=== PATIENT | female | born 1955 | race Caucasian/White ===

== ENCOUNTER 2019-03-27 20:08 | Emergency (ER) | payer BC ==
[2019-03-27] MEDS ORDERED: RINGERS SOLUTION,LACTATED 1,000 ML IV ONE (20:32)
[2019-03-27] MEDS ORDERED: ONDANSETRON HCL INJ/PF 4 MG/2 ML SDV IV ONE (20:32)
[2019-03-27] MEDS ORDERED: ONDANSETRON 4 MG TAB.RAPDIS PO ONE (21:23)
--- NOTE | 2019-03-27 21:28 | ER Document Report ---
ED General - General Chief Complaint: High Blood Sugar Stated Complaint: NAUSEA/VOMITING Time Seen by Provider: 03/27/19 20:30 Primary Care Provider: TWYLA UGALDE [NO LOCAL MD] - Follow up as needed Notes: Patient is a 63-year-old female with past medical history of diabetes, hypertension, presents complaining of approximately 12 hours of persistent vomiting. States the vomiting started earlier this morning and has been persistent since that time. This is a nonbilious, non-feculent vomiting. No hematochezia, melena or hematemesis. Symptoms are regarded as being severe, abrupt in onset and ongoing since that time. Nothing has been noted to improve or worsen the symptoms since onset. Last bowel movement was approximately 24 hours ago. Denies any associated abdominal pain. Has a surgical history of a cholecystectomy. No chest pain, fever or shortness of breath. Has not seen her primary care physician regarding today's concerns. TRAVEL OUTSIDE OF THE [place] IN LAST 30 DAYS: No Past Medical History - General Information source: Patient - Social History Smoking Status: Never Smoker Frequency of alcohol use: None Drug Abuse: None Lives with: Spouse/Significant other Family History: Reviewed & Not Pertinent Review of Systems - Review of Systems Notes: Constitutional: Negative for fever. HENT: Negative for sore throat. Eyes: Negative for visual changes. Cardiovascular: Negative for chest pain. Respiratory: Negative for shortness of breath. Gastrointestinal: Negative for abdominal pain, positive for nausea and vomiting Genitourinary: Negative for dysuria. Musculoskeletal: Negative for back pain. Skin: Negative for rash. Neurological: Negative for headaches, weakness or numbness. 10 point ROS negative except as marked above and in HPI. Physical Exam - Vital signs Vitals: Temp Pulse Resp BP Pulse Ox 98.0 F 90 18 152/69 H 98 03/27/19 20:13 03/27/19 20:13 03/27/19 20:13 03/27/19 20:13 03/27/19 20:13 Interpretation: Hypertensive Notes: PHYSICAL EXAMINATION: GENERAL: Well-appearing, well-nourished and in no acute distress. HEAD: Atraumatic, normocephalic. EYES: Pupils equal round and reactive to light, extraocular movements intact, sclera anicteric, conjunctiva are normal. ENT: nares patent, oropharynx clear without exudates. Moist mucous membranes. NECK: Normal range of motion, supple without lymphadenopathy LUNGS: Breath sounds clear to auscultation bilaterally and equal. No wheezes rales or rhonchi. HEART: Regular rate and rhythm without murmurs ABDOMEN: Soft, nontender, normoactive bowel sounds. No guarding, no rebound. No masses appreciated. EXTREMITIES: Normal range of motion, no pitting or edema. No cyanosis. NEUROLOGICAL: No focal neurological deficits. Moves all extremities spontaneously and on command. PSYCH: Normal mood, normal affect. SKIN: Warm, Dry, normal turgor, no rashes or lesions noted. Course - Re-evaluation Re-evalutation: 03/27/19 21:27 Presentation of a well-appearing 63-year-old female, vitals within normal limits with a complaint of vomiting without associated abdominal pain. On exam the patient appears mildly dehydrated. She has no areas of focal tenderness by history or palpation of the abdomen. Has a remote history of a cholecystectomy removing biliary pathology from differential. Absence of pain makes the p robability of obstruction, perforation, volvulus, or pancreatitis highly unlikely. Atypical ACS on differential although again likewise seems unlikely given the absence of any pain. Will obtain labs including troponin testing, provide IV fluids, antiemetics and a 2 view of the abdomen 03/28/19 00:07 Labs broadly unremarkable. Patient denies urinary symptoms and urinalysis is quite equivocal for any evidence of infection. Culture has been sent. Troponin is negative. Two-view abdomen with constipation but no evidence of obstruction or perforation. Patient has had complete resolution of symptoms and states that she feels completely better. She has tolerated oral intake without difficulty. She is requesting to go home at this time. At this time will discharge with return precautions and follow-up recommendations. Verbal discharge instructions given a the bedside and opportunity for questions given. Medication warnings reviewed. Patient is in agreement with this plan and has verbalized understanding of return precautions and the need for primary care follow-up in the next 24-72 hours. - Vital Signs Vital signs: Temp Pulse Resp BP Pulse Ox 98.0 F 90 12 151/67 H 99 03/27/19 20:13 03/27/19 20:13 03/27/19 23:01 03/27/19 23:01 03/27/19 23:01 - Laboratory Result Diagrams: 03/27/19 21:55 03/27/19 21:55 Laboratory results interpreted by me: 03/27/19 03/27/19 21:55 23:45 BUN 22 H Glucose 283 H Calcium 10.3 H Urine Glucose (UA) >=500 H Urine Ketones 80 H Ur Leukocyte Esterase SMALL H - Diagnostic Test Radiology reviewed: Image reviewed, Reports reviewed Radiology results interpreted by me: 03/28/19 00:09 Two-view abdomen: No evidence of obstruction or perforation Discharge - Discharge Clinical Impression: Nausea and vomiting Qualifiers: Vomiting type: unspecified Vomiting Intractability: non-intractable Qualified Code(s): R11.2 - Nausea with vomiting, unspecified Constipation Qualifiers: Constipation type: unspecified constipation type Qualified Code(s): K59.00 - Constipation, unspecified Condition: Good Disposition: HOME, SELF-CARE Additional Instructions: You have been seen in the Emergency Department (ED) today for nausea and v omiting. Your work up today has not shown a clear cause for your symptoms. You have been prescribed Zofran; please use as prescribed as needed for your nausea. Follow up with your doctor as soon as possible regarding today's emergent visit and your symptoms of nausea. Return to the Emergency Department (ED) if you develop abdominal pain, bloody vomiting, bloody diarrhea, if you are unable to tolerate fluids due to vomiting, or if you develop other symptoms that concern you. Referrals: AFTAB,NO [NO LOCAL MD] - Follow up in 3-5 days
--- NOTE | 2019-03-27 21:56 | RADIOLOGY REPORT (SQ) ---
EXAM DESCRIPTION: XR ABDOMEN 2 VIEWS SUPINE ERECT COMPLETED DATE/TME: 03/27/2019 21:15 CLINICAL HISTORY: 63 years, Female, persistent vomiting COMPARISON: None. NUMBER OF VIEWS: Three TECHNIQUE: Three frontal radiographs of the abdomen were obtained. LIMITATIONS: None. FINDINGS: Gas and a large amount of stool are noted throughout the large bowel. However, there is minimal small bowel gas which limits evaluation of its caliber. No suspicious soft tissue calcifications or osseous anomalies are evident. There is no subdiaphragmatic free air. IMPRESSION: Indeterminate bowel gas pattern. Large colonic stool load. copyright 2010 [employer]- All Rights Reserved
[2019-03-27 22:01] LABS: ABSOLUTE EOSINOPHILS # (AUTO) 0.1 10^3/uL (0.0-0.6); ABSOLUTE LYMPHOCYTES (AUTO) 1.9 10^3/uL (0.5-4.7); ABSOLUTE MONOCYTES (AUTO) 0.4 10^3/uL (0.1-1.4); ABSOLUTE NEUT (AUTO) 5.7 10^3/uL (1.7-8.2); BASOPHILS % (AUTO) 0.4 % (0-2); EOSINOPHILS % (AUTO) 0.9 % (0-6); HEMATOCRIT 38.2 % (36.0-47.0); MEAN CORPUSCULAR VOLUME 88 fl (80-97); MONOCYTES % (AUTO) 5.5 % (3-13); PLATELET COUNT 220 10^3/uL (150-450); RED BLOOD COUNT 4.33 10^6/uL (3.72-5.28); RED CELL DISTRIBUTION WIDTH 13.5 % (11.5-14.0); SEGMENTED NEUTROPHILS % (AUTO) 70.2 % (42-78); TOTAL CELLS COUNTED % (AUTO) 100 %; WHITE BLOOD COUNT 8.1 10^3/uL (4.0-10.5)
[2019-03-27 22:28] LABS: ALANINE AMINOTRANSFERASE 31 U/L (9-52); ALBUMIN 4.5 g/dL (3.5-5.0); ALKALINE PHOSPHATASE 96 U/L (38-126); ANION GAP 12 (5-19); ASPARTATE AMINO TRANSFERASE 28 U/L (14-36); BILIRUBIN,DIRECT 0.3 mg/dL (0.0-0.4); BILIRUBIN,TOTAL 0.8 mg/dL (0.2-1.3); BLOOD UREA NITROGEN 22 mg/dL (7-20); CALCIUM 10.3 mg/dL (8.4-10.2); CARBON DIOXIDE 29 mmol/L (22-30); CHLORIDE 98 mmol/L (98-107); GLUCOSE 283 mg/dL (75-110); LIPASE 58.1 U/L (23-300); POTASSIUM 4.3 mmol/L (3.6-5.0); TOTAL PROTEIN 7.7 g/dL (6.3-8.2)
[2019-03-27 22:50] LABS: VENOUS BLOOD HCO3 31.4 mmol/L (20-32); VENOUS BLOOD PCO2 54.5 mmHg (35-63); VENOUS BLOOD PH 7.38 (7.30-7.42)
[2019-03-27] MEDS ORDERED: LACTULOSE SYRUP 20 GM/30 ML UDCUP PO ONE (23:18)
--- NOTE | 2019-03-27 23:26 | EKG REPORT ---
SEVERITY:- BORDERLINE ECG - SINUS RHYTHM BORDERLINE PROLONGED QT INTERVAL : Confirmed by: Amarilis Slaughter MD 27-Mar-2019 23:25:15
[2019-03-28] LABS: APPEARANCE,URINE CLEAR; BILIRUBIN,URINE NEGATIVE (NEGATIVE); COLOR,URINE YELLOW; GLUCOSE, URINE >=500 mg/dL (NEGATIVE); KETONES,URINE 80 mg/dL (NEGATIVE); LEUKOCYTE ESTERASE,URINE SMALL (NEGATIVE); NITRITE,URINE NEGATIVE (NEGATIVE); PROTEIN,URINE NEGATIVE (NEGATIVE); URINE SPECIFIC GRAVITY 1.024; UROBILINOGEN,URINE NEGATIVE mg/dL (<2.0)
[2019-03-28 00:01] VITALS: BP 151/67
[2019-03-28] MEDS ORDERED: ONDANSETRON ODT 4 MG TAB (6 TAB/ER DISP) PO PRN (00:09)
== END 2019-03-28 00:12 | disposition home or self-care (01) ==
LOC: ER 20:08
DX: K59.00 Constipation, unspecified (principal); R11.2 Nausea with vomiting, unspecified; E86.0 Dehydration; E11.9 Type 2 diabetes mellitus without complications; I10 Essential (primary) hypertension; Z90.49 Acquired absence of other specified parts of digestive tract
CPT/HCPCS: 93005; 99284; 96360; 96361; 36415; 83690; 85025; 80053; 81001; 84484; 82803; 74019; 93010; S0119; J7120